=== PATIENT | male | born 1975 | race African-American/Black ===

== ENCOUNTER 2017-05-16 19:56 | Inpatient (IN) | payer OTHER ==
[~2017-05-16] VITALS: Ht 177.8 cm; Wt 77.7 kg
[2017-05-16] MEDS ORDERED: LABETALOL HCL IV 5 MG/ML 20ML IV STA ×2 (20:19→22:45)
[2017-05-16] MEDS ORDERED: SODIUM CHLORIDE 0.9% 1000ML 1,000 ML IV STA ×3 (20:19→21:52)
[2017-05-16] MEDS ORDERED: PROMETHAZINE HCL INJ 25 MG/ML 1 ML VIAL IV STA (20:19)
--- NOTE | 2017-05-16 20:29 | EMERGENCY ROOM VISIT NOTE ---
History Report prepared by Silvestre: Mariaelena Machuca Under the Supervision of: Dr. Shane Fisher M.D. First contact with patient: 20:13 Chief Complaint: ABDOMINAL PAIN Stated Complaint: ABD PAIN,BODY ACHES Nursing Triage Summary: pt c/o abd pain, decreased appetite, when he eats he vomits it, pmhx HIV+ History of Present Illness The patient is a 42 year old male who presents to the Emergency Room with complaints of lower abdominal pain beginning 6 days ago. The patient states he has had one bowel movement since Friday. He rates his pain at a 9/10. The patient takes gabapentin, clonidine, and naproxen. He is HIV positive but is currently undetectable. The patient states he was previously admitted to [place] for gastrointestinal problems and was not discharged until he had a bowel movement. He notes nausea and vomiting but denies any fever or urinary symptoms. The patient is a smoker and has a history of high blood pressure. Source of History: patient Onset: Friday Position: abdomen Symptom Intensity: 9/10 Quality: other (pain) Associated Symptoms: + nausea, + vomiting, No fevers, No urinary symptoms Review of Systems See HPI for pertinent positives & negatives. A total of 10 systems reviewed and were otherwise negative. Past Medical & Surgical Medical Problems: (1) HIV positive (2) HTN (hypertension) Family History No pertinent family history stated. Social History Smoking Status: Current Every Day Smoker Marital Status: Housing Status: lives with significant other Current/Historical Medications Scheduled Vbfpvjri-Lmkqfswdeglk-Fqzmacqa (Triumeq 600-50-300 mg), 1 TAB PO DAILY Clonidine Hcl (Catapres), 0.3 MG PO BID Naproxen (Naprosyn), 500 MG PO BID Allergies Coded Allergies: No Known Allergies (Unverified , 05/16/17) Physical Exam Vital Signs Date Time Temp Pulse Resp B/P (MAP) Pulse Ox O2 Delivery O2 Flow Rate FiO2 05/16/17 23:10 180/124 05/16/17 23:00 182/125 05/16/17 22:40 105 16 193/127 98 Room Air 05/16/17 21:59 110 16 167/116 98 Room Air 05/16/17 21:25 115 16 191/130 98 Room Air 05/16/17 21:07 115 16 182/120 98 Room Air 05/16/17 20:44 112 16 193/129 98 Room Air 05/16/17 20:00 37.4 114 18 188/123 97 Room Air Physical Exam GENERAL: Patient is in no acute distress. HEENT: No acute trauma, normocephalic atraumatic, mucous membranes moist, no nasal congestion, no scleral icterus. NECK: No stridor, no adenopathy, no meningismus, trachea is midline. LUNGS: Scattered wheezes, breaths sound equal, no rhonchi. HEART: Without murmurs gallops or rubs, regular rate and rhythm. ABDOMEN: Diffusely moderately tender. Soft, bowel sounds positive, no hernias, no peritonitis. EXTREMITIES: No cyanosis or edema, full range of motion of all the joints without pain or difficulty, no signs for acute trauma. NEUROLOGIC: Oriented x 3, no acute motor or sensory deficits, no focal weakness. SKIN: No rash, no jaundice, no diaphoresis. Medical Decision & Procedures ER Provider Diagnostic Interpretation: Radiology results as stated below per my review and radiologist interpretation: CHEST ONE VIEW PORTABLE FINDINGS: The bones soft tissues and hemidiaphragms are normal. The cardiomediastinal silhouette is normal. The lungs are clear. The pulmonary vasculature is normal. IMPRESSION: Negative chest. The above report was generated using voice recognition software. It may contain grammatical, syntax or spelling errors. Electronically signed by: Sven Amador M.D. ABD/PELVIS IV CONTRAST ONLY FINDINGS: Lung bases show mild nonspecific interstitial change. Liver spleen and pancreas enhance uniformly. Kidneys show mild cortical scarring but are negative for mass or hydronephrosis. The bowel pattern is nonobstructive. Appendix is unremarkable. There is no free fluid within the abdomen or pelvic region. Bladder is midline. There is no free fluid within the pelvic cul-de-sac. IMPRESSION: 1. Nonobstructive bowel pattern. 2. Normal appendix. 3. Minimal nonspecific interstitial change at both lung bases The above report was generated using voice recognition software. It may contain grammatical, syntax or spelling errors. Electronically signed by: Sven Amador M.D. Laboratory Results 05/16/17 20:35 Red Blood Count 4.33, Mean Corpuscular Volume 89.8, Mean Corpuscular Hemoglobin 31.6, Mean Corpuscular Hemoglobin Concent 35.2, Mean Platelet Volume 9.7, Neutrophils (%) (Auto) 40.6, Lymphocytes (%) (Auto) 49.0, Monocytes (%) (Auto) 8.1, Eosinophils (%) (Auto) 2.0, Basophils (%) (Auto) 0.2, Neutrophils # (Auto) 3.49, Lymphocytes # (Auto) 4.22, Monocytes # (Auto) 0.70, Eosinophils # (Auto) 0.17, Basophils # (Auto) 0.02 05/16/17 20:35 Test 05/16/17 20:35 05/16/17 21:29 White Blood Count 8.61 K/uL (4.8-10.8) Red Blood Count 4.33 M/uL (4.7-6.1) Hemoglobin 13.7 g/dL (14.0-18.0) Hematocrit 38.9 % (42-52) Mean Corpuscular Volume 89.8 fL (80-100) Mean Corpuscular Hemoglobin 31.6 pg (25-34) Mean Corpuscular Hemoglobin Concent 35.2 g/dl (32-36) Platelet Count 209 K/uL (130-400) Mean Platelet Volume 9.7 fL (7.4-10.4) Neutrophils (%) (Auto) 40.6 % Lymphocytes (%) (Auto) 49.0 % Monocytes (%) (Auto) 8.1 % Eosinophils (%) (Auto) 2.0 % Basophils (%) (Auto) 0.2 % Neutrophils # (Auto) 3.49 K/uL (1.4-6.5) Lymphocytes # (Auto) 4.22 K/uL (1.2-3.4) Monocytes # (Auto) 0.70 K/uL (0.11-0.59) Eosinophils # (Auto) 0.17 K/uL (0-0.5) Basophils # (Auto) 0.02 K/uL (0-0.2) RDW Standard Deviation 43.5 fL (36.4-46.3) RDW Coefficient of Variation 13.1 % (11.5-14.5) Immature Granulocyte % (Auto) 0.1 % Immature Granulocyte # (Auto) 0.01 K/uL (0.00-0.02) Anion Gap 7.0 mmol/L (3-11) Est Creatinine Clear Calc Drug Dose 74.5 ml/min Estimated GFR () 76.0 Estimated GFR (Non- 65.6 BUN/Creatinine Ratio 6.9 (10-20) Calcium Level 8.4 mg/dl (8.5-10.1) Total Bilirubin 0.2 mg/dl (0.2-1) Aspartate Amino Transf (AST/SGOT) 25 U/L (15-37) Alanine Aminotransferase (ALT/SGPT) 26 U/L (12-78) Alkaline Phosphatase 129 U/L (45-117) Total Protein 7.7 gm/dl (6.4-8.2) Albumin 3.4 gm/dl (3.4-5.0) Globulin 4.3 gm/dl (2.5-4.0) Albumin/Globulin Ratio 0.8 (0.9-2) Lipase 205 U/L (73-393) Urine Color YELLOW Urine Appearance CLEAR (CLEAR) Urine pH 5.5 (4.5-7.5) Urine Specific [place] 1.013 (1.000-1.030) Urine Protein NEG (NEG) Urine Glucose (UA) NEG (NEG) Urine Ketones NEG (NEG) Urine Occult Blood NEG (NEG) Urine Nitrite NEG (NEG) Urine Bilirubin NEG (NEG) Urine Urobilinogen NEG (NEG) Urine Leukocyte Esterase NEG (NEG) Laboratory results reviewed by me. Medications Administered Medications (Trade) Dose Ordered Sig/Marcelina Route Start Time Stop Time Status Last Admin Dose Admin Promethazine HCl (Phenergan Inj) 12.5 mg NOW STAT IV 05/16/17 20:19 05/16/17 20:22 DC 05/16/17 20:19 12.5 MG Sodium Chloride 1,000 ml @ 200 mls/hr Q5H STAT IV 05/16/17 20:19 05/17/17 01:18 05/16/17 20:19 200 MLS/HR Sodium Chloride 1,000 ml @ 999 mls/hr Q1H1M STAT IV 05/16/17 20:19 05/16/17 21:19 DC 05/16/17 20:19 999 MLS/HR Morphine Sulfate (MoRPHine SULFATE INJ) 4 mg Q30M PRN IV 05/16/17 20:30 05/30/17 20:29 05/16/17 23:26 4 MG Labetalol HCl (Normodyne IV) 20 mg NOW STAT IV 05/16/17 20:19 05/16/17 20:22 DC 05/16/17 20:19 20 MG Clonidine HCl (Catapres Tab) 0.3 mg NOW ONCE PO 05/16/17 21:45 05/16/17 21:46 DC 05/16/17 21:45 0.3 MG Sodium Chloride 1,000 ml @ 999 mls/hr Q1H1M STAT IV 05/16/17 21:52 05/16/17 22:52 DC 05/16/17 21:52 999 MLS/HR Labetalol HCl (Normodyne IV) 20 mg NOW STAT IV 05/16/17 22:45 05/16/17 22:46 DC 05/16/17 22:45 20 MG Hydralazine HCl (HydrALAZINE INJ) 10 mg NOW STAT IV 05/16/17 23:18 05/16/17 23:19 DC 05/16/17 23:22 10 MG ED Course 2014: The patient was evaluated in room C10. A complete history and physical exam was performed. 2019: Labetalol HCl 20 mg IV, Sodium Chloride 1000 ml @ 999 mls/hr IV, Sodium Chloride 1000 ml @ 2000 mls/hr IV, Promethazine HCl 12.5 mg IV. 2030: Ioversol 111 ml IV, Morphine Sulfate 4 mg IV. 2145: Clonidine HCl 0.3 mg PO. 2152: Sodium Chloride 1000 ml @ 999 mls/hr IV. 2243 : The patient would like to go home. He is feeling fine, I would like to control his high blood pressure before dispo. 2245: Labetalol HCl 20 mg IV. 2318: Hydralazine HCl 10 mg IV. 2320: The patient is willing to be admitted. 2324: Discussed the patient's case Dr. Naik. The patient will be evaluated for further management. Medical Decision Differential diagnoses include: constipation, bowel obstruction, renal failure, UTI, dehydration, diverticulitis, appendicitis. There is no leukocytosis or concerning anemia. No significant electrolyte abnormality, kidney failure or hepatitis. There is no pancreatitis. Urinalysis does not show infection or hematuria. Chest film does not show free air or pneumonia. Abdominal and pelvis CT does not show any bowel obstruction or acute surgical process. No evidence for diverticulitis. On exam, the patient was not toxic or febrile. He was quite hypertensive though-he has not been taking his blood pressure medication lately because of his nausea and vomiting. The patient received IV saline, received IV morphine and IV Zofran. Because of the high blood pressure, he received IV labetalol, he was given a second dose IV. He received his oral clonidine. He was given IV hydralazine. Despite these numerous medications given for blood pressure, the patient's blood pressure is still quite high, I do not think he is able to be discharged home. He requires further hydration and blood pressure control. Hospitalization was recommended. I spoke to case management. The on-call hospitalist was consulted. [place] Drug Monitoring Program Search Results: patient reviewed within database, no issues identified Medication Reconcilliation Current Medication List: was personally reviewed by me Blood Pressure Screening Patient's blood pressure: Elevated blood pressure Blood pressure disposition: Referred to PCP Consults Time Called: 2319 Consulting Physician: Dr. Naik Returned Call: [phone] Discussed the patient's case. The patient will be evaluated for further management. Impression Primary Impression: Diffuse abdominal pain Additional Impressions: Vomiting Dehydration Hypertensive urgency Scribe Attestation The scribe's documentation has been prepared under my direction and personally reviewed by me in its entirety. I confirm that the note above accurately reflects all work, treatment, procedures, and medical decision making performed by me. Departure Information Dispostion Being Evaluated By Hospitalist Patient Instructions My [facility] Problem Qualifiers
[2017-05-16] MEDS ORDERED: OPTIRAY 320 IV PRN (20:30)
[2017-05-16 20:39] LABS: BASO % 0.2 %; BASO ABS # 0.02 K/uL (0-0.2); COMPLETE YES; HEMATOCRIT 38.9 % (42-52); IG% 0.1 %; LYMPH ABS # 4.22 K/uL (1.2-3.4); MEAN CELL VOLUME 89.8 fL (80-100); MEAN CORPUSCULAR HEMOGLOBIN 31.6 pg (25-34); MEAN CORPUSCULAR HGB CONC 35.2 g/dl (32-36); MEAN PLATELET VOLUME 9.7 fL (7.4-10.4); MONO % 8.1 %; NEUT % 40.6 %; PLATELET COUNT 209 K/uL (130-400); RED BLOOD COUNT 4.33 M/uL (4.7-6.1); WHITE BLOOD COUNT 8.61 K/uL (4.8-10.8)
[2017-05-16] MEDS: MoRPHine SULFATE 4 MG/ML 1 ML CARP\\VIAL IV PRN ×3 (20:42→23:26)
--- NOTE | 2017-05-16 20:42 | DIAGNOSTIC IMAGING REPORT ---
CHEST ONE VIEW PORTABLE CLINICAL HISTORY: ABDOMINAL PAIN/GI pain COMPARISON STUDY: No previous studies for comparison. FINDINGS: The bones soft tissues and hemidiaphragms are normal. The cardiomediastinal silhouette is normal. The lungs are clear. The pulmonary vasculature is normal. IMPRESSION: Negative chest. The above report was generated using voice recognition software. It may contain grammatical, syntax or spelling errors. Electronically signed by: Sven Amador M.D. 05/16/2017 8:41 PM Dictated Date/Time: 05/16/2017 8:41 PM
[2017-05-16 21:02] LABS: BUN/CREATININE RATIO 6.9 (10-20); CALCIUM 8.4 mg/dl (8.5-10.1); CREATININE 1.32 mg/dl (0.60-1.40)
[2017-05-16 21:04] LABS: ALB/GLOB RATIO 0.8 (0.9-2)
[2017-05-16] MEDS ORDERED: NAPR-1169 PO (21:21)
[2017-05-16] MEDS ORDERED: ABAC1TAB17 PO (21:21)
[2017-05-16] MEDS ORDERED: CLON0.3T PO (21:21)
--- NOTE | 2017-05-16 21:31 | DIAGNOSTIC IMAGING REPORT ---
ABD/PELVIS IV CONTRAST ONLY CT DOSE: 282.32 mGy.cm HISTORY: Pain ABD PAIN, POSS OBSTRUCTION, IV CONTRAST ONLY TECHNIQUE: Multiaxial CT images of the abdomen and pelvis were performed following the use of intravenous contrast. A dose lowering technique was utilized adhering to the principles of ALARA. COMPARISON STUDY: None. FINDINGS: Lung bases show mild nonspecific interstitial change. Liver spleen and pancreas enhance uniformly. Kidneys show mild cortical scarring but are negative for mass or hydronephrosis. The bowel pattern is nonobstructive. Appendix is unremarkable. There is no free fluid within the abdomen or pelvic region. Bladder is midline. There is no free fluid within the pelvic cul-de-sac. IMPRESSION: 1. Nonobstructive bowel pattern. 2. Normal appendix. 3. Minimal nonspecific interstitial change at both lung bases The above report was generated using voice recognition software. It may contain grammatical, syntax or spelling errors. Electronically signed by: Sven Amador M.D. 05/16/2017 9:29 PM Dictated Date/Time: 05/16/2017 9:27 PM
[2017-05-16 21:40] LABS: URINE APPEARANCE CLEAR (CLEAR); URINE BILIRUBIN NEG (NEG); URINE COLOR YELLOW; URINE NITRITE NEG (NEG); URINE PH 5.5 (4.5-7.5); URINE SPECIFIC GRAVITY 1.013 (1.000-1.030); UROBILINOGEN NEG (NEG); ZZUR CULT IF INDIC CLEAN CATCH NO
[2017-05-16 21:41] LABS: MANUAL MICROSCOPIC REQUIRED? NO; REVIEW REQ? NO
[2017-05-16] MEDS ORDERED: CLONIDINE HCL 0.1 MG TAB PO ONE (21:45)
[2017-05-16] MEDS ORDERED: HydrALAZINE HCL 20 MG/ML VIAL IV STA (23:18)
[2017-05-17] VITALS (9 sets, daily range): BP systolic 125–179; BP diastolic 79–102; PULSE 62–78; TEMP 36.7–37.2; O2SAT 97–100; Ht 177.8 cm; Wt 77.7 kg
[2017-05-17] MEDS ORDERED: ONDANSETRON INJ 2 MG/ML 2 ML VIAL IV PRN (00:30)
[2017-05-17] MEDS ORDERED: ACETAMINOPHEN 325 MG TAB PO PRN (00:30)
[2017-05-17] MEDS ORDERED: ALUMINUM/MAGNESIUM/SIMETH (MAALOX MAX) 30 ML UDC PO PRN (00:30)
[2017-05-17] MEDS ORDERED: NITROGLYCERIN 0.4 MG SL PER TAB CHARGE SL PRN (00:30)
[2017-05-17] MEDS ORDERED: HydrALAZINE HCL 20 MG/ML VIAL IV. PRN (00:30)
[2017-05-17] MEDS ORDERED: POTASSIUM CHLORIDE 10 MEQ TABCR PO STA (00:36)
--- NOTE | 2017-05-17 01:23 | HISTORY & PHYSICAL EXAMINATION ---
DATE OF ADMISSION: 05/17/2017 CHIEF COMPLAINT: Nausea, vomiting and abdominal pain. HISTORY OF PRESENT ILLNESS: This is a 42-year-old male with past medical history significant for HIV positive currently undetectable, history of hypertension, not taking his medications because he thinks the blood pressure medications are causing sexual dysfunction. He is supposed to be on clonidine, lisinopril and Norvasc. He is from [place] and is visiting [place] since about a week. Since he came here, he has had only 1 bowel movement and last few days, he is having significant abdominal pain, also some nausea, vomiting and he is not eating anything, and got worried and he came to the ER. In the ER, the CAT scan of the abdomen and pelvis was unremarkable. Labs were okay. Currently resting comfortably, complains of abdominal pain . Blood pressure is running high in the ER . even after hydralazine, labetalol, his blood pressure is still in 160s-180s, so we are called for admission. Denies any chest pain or shortness of breath. No blurred visions. No headaches. ALLERGIES: No known drug allergies. PAST MEDICAL HISTORY: As mentioned above. MEDICATIONS: The patient is on Triumeq 1 tablet p.o. daily, naproxen 500 b.i.d. p.r.n., clonidine 0.3 mg p.o. b.i.d., lisinopril 20 mg p.o. daily, Norvasc 10 mg p.o. daily. FAMILY HISTORY: Mother had stroke SOCIAL HISTORY: Smokes 1 pack daily. No alcohol history. REVIEW OF SYMPTOMS: As per HPI. Rest of review of systems is negative. PHYSICAL EXAMINATION: GENERAL: The patient is of moderate build, not in distress. VITAL SIGNS: Temperature 37.4, pulse 105, respiratory rate 16, blood pressure 164/108, oxygen 98% room air. HEENT: No pallor, no icterus. Pupils equal, round, and reactive to light. NECK: No JVD, no neck masses. No carotid bruits. CARDIOVASCULAR SYSTEM: S1, S2 heard, regular rate and rhythm, no murmur, no gallop. RESPIRATORY SYSTEM: Clear to auscultation bilaterally. No wheezing. No crackles. ABDOMEN: Soft, bowel sounds present. Mild diffuse tenderness, no guarding, no rigidity, no distention. CENTRAL NERVOUS SYSTEM: Nonfocal. EXTREMITIES: No edema, no erythema. LABORATORY DATA: Urinalysis negative. WBC 8.6, hemoglobin 13.7, hematocrit 38.9, platelets 209. Sodium 141, potassium 3, chloride 108, bicarbonate 26, BUN 9, creatinine 1.3, serum glucose 81, calcium 8.4, total bilirubin 0.2, AST 25, ALT 26, alkaline phosphatase 129. Lipase 205. CT of the abdomen and pelvis, no acute findings. Chest x-ray, no acute findings. ASSESSMENT AND PLAN: This is a 42-year-old male who presents with significant abdomen pain, nausea and vomiting. 1. Abdominal pain, nausea, and vomiting. CT of abdomen and pelvis unremarkable, most likely could be from gastritis from his naproxen or could be viral gastroenteritis. We will place him on IV Zantac and IV fluids and monitor him on medical floor. 2. Hypertensive urgency the patient is not taking his medications from his nausea and also thinks his medications are causing sexual dysfunction. He was supposed to be on clonidine 0.3 b.i.d., Norvasc 10 mg p.o. daily, lisinopril 20 mg p.o. daily. Currently, we will place him on clonidine patch and IV hydralazine p.r.n. and monitor. 3. Hypokalemia. We will replace. 4. Human immunodeficiency virus status. Continue his home medications. 5. Deep venous thrombosis prophylaxis, sequential compression devices and thromboembolic deterrents. DISPOSITION: Admit to medical floor. Expect to discharge home and follow with his family doctor. Level 1 full code. MTDD
[2017-05-17] MEDS ORDERED: CLONIDINE HCL 0.3 MG/24 HR TRANSDERM SYS TD SCH (02:15)
[2017-05-17] MEDS: RANITIDINE IV 50 MG in DEXTROSE 5% 100ML 100 ML IV SCH ×2 (03:43→09:35)
[2017-05-17] MEDS: NSS + 20MEQ KCL 1000ML 1,000 ML IV SCH ×2 (03:44→14:55)
[2017-05-17 05:46] LABS: BUN/CREATININE RATIO 6.1 (10-20); CALCIUM 7.8 mg/dl (8.5-10.1); CREATININE 1.23 mg/dl (0.60-1.40); MAGNESIUM 2.2 mg/dl (1.8-2.4); POTASSIUM 3.1 mmol/L (3.5-5.1)
[2017-05-17] MEDS ORDERED: POTASSIUM CHLORIDE 20 MEQ TABCR PO ONE (06:45)
[2017-05-17] MEDS: NICOTINE 21 MG/24 HR TDSY TD SCH ×2 (07:29→09:00)
[2017-05-17] MEDS: MoRPHine SULFATE 4 MG/ML 1 ML CARP\\VIAL IV PRN ×3 (07:35→21:44)
[2017-05-17] MEDS: CHECK CLONIDINE PATCH PLACEMENT SCH ×2 (07:40→14:55)
[2017-05-17] MEDS ORDERED: INFLUENZA ADMINISTRATION CHARGE ONE (08:00)
[2017-05-17] MEDS ORDERED: INFLUENZA VIRUS QUAD VACCINE 0.5 ML SYR IM. ONE (08:00)
[2017-05-17] MEDS ORDERED: POLYETHYLENE (MIRALAX) 17 GM PACK PO PRN (09:15)
[2017-05-17] MEDS: DOCUSATE SODIUM/SENNA 50/8.6MG TAB PO SCH ×3 (09:38→21:13)
--- NOTE | 2017-05-17 09:40 | Progress Note ---
Internal Med Progress Note Date of Service: May 17, 2017. Provider Documentation: SUBJECTIVE: seen and examined at bedside Nausea/Abd pain improved Denies chest pain, SOB Tolerating diet States having dark colored stools No other complaints OBJECTIVE: Vital Signs-as noted below Physical Exam: General Appearance:Moderately built and nourished, no apparent distress Head: normocephalic, Atraumatic Eyes: normal inspection, EOMI, PERRL Neck: supple, Trachea midline Respiratory/Chest: Normal breath sounds, CTA Cardiovascular: S1, S2, No murmur Abdomen/GI:Soft, mild tender generalized, Bowel sounds present Extremities/Musculoskelatal:normal inspection, no edema Neurologic/Psych:AAOX3, grossly no focal neurological deficits Skin: normal color, warm Lab data as noted below. ASSESSMENT & PLAN: Patient is a 42 yr male who presents with abdomen pain, nausea and vomiting and uncontrolled blood pressure Abdominal pain/Nausea/Vomiting: Likely gastritis from Naproxen use/Constipation CT abdomen: unremarkable Continue IVF, IV Zantac Start bowel regimen Pain control Repeat KUB in AM tolerating diet check FOBT Hypertensive urgency: Noncompliant secondary to meds causing sexual dysfunction. Patient is on clonidine 0.2 mg b.i.d., Norvasc 10 mg daily, lisinopril 20 mg daily Plan to continue clonidine for now Continue Norvasc Will switch lisinopril to losartan upon discharge if patient agreeable Expresses some reluctance to med changes IV hydralazine PRN BP better monitor Hypokalemia: Secondary to GI losses Replace and monitor Human immunodeficiency virus status: Continue his home medications DVT Px: SCDs Code Status: Full Code DISPOSITION: Expect to discharge home when stable Vital Signs: Date Time Temp Pulse Resp B/P (MAP) Pulse Ox O2 Delivery O2 Flow Rate FiO2 05/17/17 11:45 36.9 70 20 141/93 (109) 98 Room Air 05/17/17 08:00 Room Air 05/17/17 07:49 36.7 62 16 133/80 (97) 99 Room Air 05/17/17 04:55 36.7 71 18 127/84 (98) 99 05/17/17 04:00 Room Air 05/17/17 01:40 36.7 73 18 125/79 97 Room Air 05/17/17 01:20 83 18 115/91 99 Room Air 05/17/17 00:30 122/84 05/16/17 23:31 164/108 05/16/17 23:10 180/124 05/16/17 23:00 182/125 05/16/17 22:40 105 16 193/127 98 Room Air 05/16/17 21:59 110 16 167/116 98 Room Air 05/16/17 21:25 115 16 191/130 98 Room Air 05/16/17 21:07 115 16 182/120 98 Room Air 05/16/17 20:44 112 16 193/129 98 Room Air 05/16/17 20:00 37.4 114 18 188/123 97 Room Air Lab Results: Results Past 24 Hours Test 05/16/17 20:35 05/16/17 21:29 05/17/17 05:16 Range/Units White Blood Count 8.61 4.8-10.8 K/uL Red Blood Count 4.33 4.7-6.1 M/uL Hemoglobin 13.7 14.0-18.0 g/dL Hematocrit 38.9 42-52 % Mean Corpuscular Volume 89.8 80-100 fL Mean Corpuscular Hemoglobin 31.6 25-34 pg Mean Corpuscular Hemoglobin Concent 35.2 32-36 g/dl Platelet Count 209 130-400 K/uL Mean Platelet Volume 9.7 7.4-10.4 fL Neutrophils (%) (Auto) 40.6 % Lymphocytes (%) (Auto) 49.0 % Monocytes (%) (Auto) 8.1 % Eosinophils (%) (Auto) 2.0 % Basophils (%) (Auto) 0.2 % Neutrophils # (Auto) 3.49 1.4-6.5 K/uL Lymphocytes # (Auto) 4.22 1.2-3.4 K/uL Monocytes # (Auto) 0.70 0.11-0.59 K/uL Eosinophils # (Auto) 0.17 0-0.5 K/uL Basophils # (Auto) 0.02 0-0.2 K/uL RDW Standard Deviation 43.5 36.4-46.3 fL RDW Coefficient of Variation 13.1 11.5-14.5 % Immature Granulocyte % (Auto) 0.1 % Immature Granulocyte # (Auto) 0.01 0.00-0.02 K/uL Sodium Level 141 143 136-145 mmol/L Potassium Level 3.0 3.1 3.5-5.1 mmol/L Chloride Level 108 112 98-107 mmol/L Carbon Dioxide Level 26 23 21-32 mmol/L Anion Gap 7.0 8.0 3-11 mmol/L Blood Urea Nitrogen 9 7 7-18 mg/dl Creatinine 1.32 1.23 0.60-1.40 mg/dl Est Creatinine Clear Calc Drug Dose 74.5 80.0 ml/min Estimated GFR () 76.0 82.8 Estimated GFR (Non- 65.6 71.5 BUN/Creatinine Ratio 6.9 6.1 10-20 Random Glucose 81 112 70-99 mg/dl Calcium Level 8.4 7.8 8.5-10.1 mg/dl Total Bilirubin 0.2 0.2-1 mg/dl Aspartate Amino Transf (AST/SGOT) 25 15-37 U/L Alanine Aminotransferase (ALT/SGPT) 26 12-78 U/L Alkaline Phosphatase 129 45-117 U/L Total Protein 7.7 6.4-8.2 gm/dl Albumin 3.4 3.4-5.0 gm/dl Globulin 4.3 2.5-4.0 gm/dl Albumin/Globulin Ratio 0.8 0.9-2 Lipase 205 73-393 U/L Urine Color YELLOW Urine Appearance CLEAR CLEAR Urine pH 5.5 4.5-7.5 Urine Specific [place] 1.013 1.000-1.030 Urine Protein NEG NEG Urine Glucose (UA) NEG NEG Urine Ketones NEG NEG Urine Occult Blood NEG NEG Urine Nitrite NEG NEG Urine Bilirubin NEG NEG Urine Urobilinogen NEG NEG Urine Leukocyte Esterase NEG NEG Magnesium Level 2.2 1.8-2.4 mg/dl
[2017-05-18] MEDS: CHECK CLONIDINE PATCH PLACEMENT SCH ×2 (00:15→08:00)
[2017-05-18 04:00] VITALS: BP 159/100; PULSE 72; TEMP 36.9; O2SAT 99
[2017-05-18] MEDS: NSS + 20MEQ KCL 1000ML 1,000 ML IV SCH (04:57)
[2017-05-18 06:35] LABS: BASO % 0.4 %; BASO ABS # 0.02 K/uL (0-0.2); COMPLETE YES; EOS % 2.3 %; HEMATOCRIT 39.4 % (42-52); LYMPH % 46.4 %; LYMPH ABS # 2.26 K/uL (1.2-3.4); MEAN CELL VOLUME 90.6 fL (80-100); MEAN CORPUSCULAR HEMOGLOBIN 30.8 pg (25-34); MEAN PLATELET VOLUME 10.2 fL (7.4-10.4); NEUT % 42.9 %; PLATELET COUNT 220 K/uL (130-400); RED BLOOD COUNT 4.35 M/uL (4.7-6.1); WHITE BLOOD COUNT 4.87 K/uL (4.8-10.8)
[2017-05-18 07:03] LABS: BUN/CREATININE RATIO 6.4 (10-20); CALCIUM 8.4 mg/dl (8.5-10.1); CREATININE 1.12 mg/dl (0.60-1.40); MAGNESIUM 1.9 mg/dl (1.8-2.4); POTASSIUM 3.5 mmol/L (3.5-5.1)
[2017-05-18 07:46] VITALS: BP 164/111; PULSE 72; TEMP 37.1; O2SAT 97
[2017-05-18] MEDS: DOCUSATE SODIUM/SENNA 50/8.6MG TAB PO SCH (09:00)
[2017-05-18] MEDS ORDERED: ABACAVIR DOLUTEGRAVIR LAMIVUDI PO SCH (09:00)
--- NOTE | 2017-05-18 09:11 | DIAGNOSTIC IMAGING REPORT ---
KUB CLINICAL HISTORY: abdominal pain pain COMPARISON STUDY: No previous studies for comparison. FINDINGS: The soft tissues, psoas shadows, renal outlines and intestinal gas pattern appear normal. There is no evidence for bowel obstruction. No abnormal abdominal calcifications are seen. IMPRESSION: Normal study. The above report was generated using voice recognition software. It may contain grammatical, syntax or spelling errors. Electronically signed by: Sven Amador M.D. 05/18/2017 9:10 AM Dictated Date/Time: 05/18/2017 9:10 AM
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
[2017-05-18] MEDS: NICOTINE 21 MG/24 HR TDSY TD SCH (10:00)
[2017-05-18] MEDS ORDERED: NRN100 PO (10:30)
[2017-05-18] MEDS ORDERED: CLON0.3T PO (10:30)
[2017-05-18] MEDS ORDERED: PRT/20 PO (10:30)
[2017-05-18] MEDS ORDERED: AMLO-114 PO (10:30)
[2017-05-18] MEDS ORDERED: DOCU-94 PO (10:30)
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
[2017-05-18 10:38] VITALS: BP 155/92; PULSE 68; TEMP 36.9; O2SAT 99
[2017-05-18] MEDS ORDERED: PANTOprazole INJ 40 MG in SYRINGE 0 ML IV SCH (11:00)
== END 2017-05-18 10:55 | disposition home or self-care (01) | DRG 392 ==
LOC: C.EDB 19:58 → C.2T 05-17 00:29 → ENRESERV 05-17 01:01
PROVIDERS: ADMIT Internal Medicine; ATTEND Internal Medicine
DX: K29.70 Gastritis, unspecified, without bleeding (principal); T39.315A Adverse effect of propionic acid derivatives, initial encounter; I16.0 Hypertensive urgency; E87.6 Hypokalemia; E86.0 Dehydration; Z21 Asymptomatic human immunodeficiency virus [HIV] infection status; I10 Essential (primary) hypertension; Z91.14 Patient's other noncompliance with medication regimen; F17.210 Nicotine dependence, cigarettes, uncomplicated; Y92.019 Unspecified place in single-family (private) house as the place of occurrence of the external cause

== ENCOUNTER 2017-08-07 11:41 | Emergency (ER) | payer OTHER ==
[~2017-08-07] VITALS: Ht 177.8 cm; Wt 76.2 kg
[~2017-08-07 11:41] MED LIST: ABAC1TAB17 PO; CLON0.3T PO; NRN100 PO
[2017-08-07 12:02] VITALS: TEMP 37.2; Ht 177.8 cm; Wt 76.2 kg
[2017-08-07] MEDS ORDERED: AMLO10TA2 PO (12:17)
[2017-08-07] MEDS ORDERED: CLON0.3T PO (12:19)
--- NOTE | 2017-08-07 13:02 | DIAGNOSTIC IMAGING REPORT ---
R ANKLE MIN 3 VIEWS ROUTINE HISTORY: 42 years-old Male pain acute right-sided ankle pain without reported trauma COMPARISON: None available TECHNIQUE: 3 views of the right ankle FINDINGS: There are multiple punctate radiodensities within the soft tissues about the distal tibia. Mild soft tissue swelling about the ankle. Linear ossifications are noted within the region of the anterior joint capsule measuring up to 9 mm with associated dystrophic appearing ossification or spurring anterior to the talar dome seen nicely on the lateral view.. No definite osteochondral defect, acute fracture or subluxation. IMPRESSION: 1. Soft tissue swelling without acute fracture or subluxation. 2. Multiple punctate radiodensities are noted within the soft tissues about the distal talus, notably anteriorly. 3. Corticated chronic appearing ossifications are seen anterior to the talar dome in the region of the anterior joint capsule. The above report was generated using voice recognition software. It may contain grammatical, syntax or spelling errors. Electronically signed by: Duy Leblanc M.D. 08/07/2017 1:01 PM Dictated Date/Time: 08/07/2017 12:54 PM
[2017-08-07] MEDS ORDERED: TRAM-10 PO (13:36)
[2017-08-07 13:50] VITALS: BP 155/101; PULSE 99; O2SAT 100
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
== END 2017-08-07 13:51 | disposition home or self-care (01) ==
LOC: C.EDB 11:42 → C.EDD 13:51
DX: M25.571 Pain in right ankle and joints of right foot (principal); I10 Essential (primary) hypertension; Z21 Asymptomatic human immunodeficiency virus [HIV] infection status; Z79.899 Other long term (current) drug therapy; Z72.0 Tobacco use

== ENCOUNTER → 2017-10-31 | Outpatient (CLI) | payer OTHER ==
[~2017-10-31] MED LIST changes: +AMLO10TA2 PO; -NRN100 PO; +TRAM-10 PO
[2017-10-31 12:20] LABS: BASO % 0.2 %; BASO ABS # 0.02 K/uL (0-0.2); EOS % 3.2 %; EOS ABS # 0.33 K/uL (0-0.5); HEMATOCRIT 36.3 % (42-52); HEMOGLOBIN 12.2 g/dL (14.0-18.0); IG# 0.02 K/uL (0.00-0.02); LYMPH % 40.2 %; LYMPH ABS # 4.19 K/uL (1.2-3.4); MEAN CELL VOLUME 84.4 fL (80-100); MEAN CORPUSCULAR HEMOGLOBIN 28.4 pg (25-34); MEAN CORPUSCULAR HGB CONC 33.6 g/dl (32-36); MEAN PLATELET VOLUME 9.3 fL (7.4-10.4); MONO % 7.9 %; MONO ABS # 0.82 K/uL (0.11-0.59); NEUT % 48.3 %; NEUT ABS # 5.04 K/uL (1.4-6.5); PLATELET COUNT 319 K/uL (130-400); RED CELL DISTRIBUTION WIDTH CV 13.8 % (11.5-14.5); RED CELL DISTRIBUTION WIDTH SD 42.6 fL (36.4-46.3); WHITE BLOOD COUNT 10.42 K/uL (4.8-10.8)
[2017-10-31 12:48] LABS: ALBUMIN 2.9 gm/dl (3.4-5.0); ALT/SGPT 36 U/L (12-78); BLOOD UREA NITROGEN 14 mg/dl (7-18); CALCIUM 8.8 mg/dl (8.5-10.1); CARBON DIOXIDE 25 mmol/L (21-32); CREATININE 1.18 mg/dl (0.60-1.40); GLUCOSE 87 mg/dl (70-99); POTASSIUM 3.4 mmol/L (3.5-5.1); SODIUM 138 mmol/L (136-145)
[2017-10-31 12:51] LABS: ALKALINE PHOSPHATASE 121 U/L (45-117); AST/SGOT 35 U/L (15-37); TOTAL PROTEIN 8.3 gm/dl (6.4-8.2)
[2017-11-04 22:38] LABS: HEPATITIS C VIRAL RNA BY PCR <15 NOT DETECTED IU/ML (<15); HEPATITIS C VIRAL RNA(LOG) PCR <1.18 NOT DETECTED LOG IU/ML (<1.18); LSP % CELLS ANALYZED CD4 22 % (30-61); LSP ABSOLUTE CT CD4 825 cells/uL (490-1740); TESTOSTERONE,TOTAL 371 ng/dL (250-1100)
== END | disposition home or self-care (01) ==
LOC: C.LAB1850 11:24
PROVIDERS: ATTEND Internal Medicine Infectious Disease
DX: B20 Human immunodeficiency virus [HIV] disease (principal)